=== PATIENT | female | born 1980 | race Two or more races ===

== ENCOUNTER 2017-09-30 17:20 | Emergency (ER) | payer OTHER ==
[2017-09-30 17:25] VITALS: BP 128/88; PULSE 87; TEMP 97.4; BMI 26.4
--- NOTE | 2017-09-30 17:37 | PDOC ---
History of Present Illness <Nancy Ramirez - Last Filed: 09/30/17 18:55> - General History Source: Patient Exam Limitations: No Limitations - History of Present Illness Initial Comments: 09/30/17 19:03 The patient is a 37 year old female with no significant past medical history who presents to the ED with complaints of throat discomfort for a month. The patient reports a sudden onset of throat itching and a pressure like sensation in her throat. She states her symptoms progressively worsened this past week and she feels like her throat is closing. Patient reports taking benadryl with slight relief of symptoms. She states her throat discomfort was at its worse today and she went to the pharmacy and was given robitussin with no relief of symptoms. Denies fever or chills. Denies nausea, vomiting, or diarrhea. Denies chest pain or shortness of breath. Denies rash. Denies any other symptoms. <Donta Morales - Last Filed: 09/30/17 19:04> - General Chief Complaint: Sore Throat Stated Complaint: ITCHY THROAT Time Seen by Provider: 09/30/17 17:37 Past History - Past Medical History COPD: No Other medical history: DENIES - Suicide/Smoking/Psychosocial Hx Smoking History: Never smoked Have you smoked in the past 12 months: No Information on smoking cessation initiated: No Hx Alcohol Use: No Drug/Substance Use Hx: No <Nancy Ramirez - Last Filed: 09/30/17 18:55> <Donta Morales - Last Filed: 09/30/17 19:04> - Past Medical History Allergies/Adverse Reactions: Allergies Allergy/AdvReac Type Severity Reaction Status Date / Time No Known Allergies Allergy Verified 09/30/17 17:22 Home Medications: Ambulatory Orders Diphenhydramine HCl [Benadryl -] 25 mg PO ONCE 09/30/17 Prednisone [Prednisone 50 MG TABLETS] 50 mg PO DAILY #4 tablet 09/30/17 Review of Systems - Review of Systems Able to Perform ROS?: Yes Comments:: 09/30/17 19:03 GENERAL/CONSTITUTIONAL: No fever or chills. No weakness. HEAD, EYES, EARS, NOSE AND THROAT: + Throat discomfort. No change in vision. No ear pain or discharge. GASTROINTESTINAL: No nausea, vomiting, diarrhea or constipation. GENITOURINARY: No dysuria, frequency, or change in urination. CARDIOVASCULAR: No chest pain or shortness of breath. RESPIRATORY: No cough, wheezing, or hemoptysis. MUSCULOSKELETAL: No joint or muscle swelling or pain. No neck or back pain. SKIN: No rash NEUROLOGIC: No headache, vertigo, loss of consciousness, or change in strength/ sensation. ENDOCRINE: No increased thirst. No abnormal weight change. HEMATOLOGIC/LYMPHATIC: No anemia, easy bleeding, or history of blood clots. ALLERGIC/IMMUNOLOGIC: No hives or skin allergy. All Other Systems: Reviewed and Negative <Donta Morales - Last Filed: 09/30/17 19:04> *Physical Exam - Vital Signs Last Vital Signs Temp Pulse Resp BP Pulse Ox 97.4 F L 87 18 128/88 100 09/30/17 17:20 09/30/17 17:20 09/30/17 17:20 09/30/17 17:20 09/30/17 17:20 <Nancy Ramirez - Last Filed: 09/30/17 18:55> - Vital Signs Last Vital Signs Temp Pulse Resp BP Pulse Ox 97.4 F L 87 18 128/88 100 09/30/17 17:20 09/30/17 17:20 09/30/17 17:20 09/30/17 17:20 09/30/17 17:20 - Physical Exam Comments: 09/30/17 19:03 GENERAL: Awake, alert, and fully oriented, in no acute distress HEAD: No signs of trauma EYES: PERRLA, EOMI, sclera anicteric, conjunctiva clear ENT: Auricles normal inspection, hearing grossly normal, nares patent, oropharynx clear without exudates. Moist mucosa NECK: Normal ROM, supple, no lymphadenopathy, JVD, or masses LUNGS: Breath sounds equal, clear to auscultation bilaterally. No wheezes, and no crackles HEART: Regular rate and rhythm, normal S1 and S2, no murmurs, rubs or gallops ABDOMEN: Soft, nontender, normoactive bowel sounds. No guarding, no rebound. No masses EXTREMITIES: Normal range of motion, no edema. No clubbing or cyanosis. No cords, erythema, or tenderness BACK: No midline spinal tenderness in cervical/thoracic/lumbar region NEUROLOGICAL: Normal speech, cranial nerves intact, negative pronator drift, 5/ 5 strength in all 4 extremities, normal sensation to light touch in all 4 extremities, normal cerebellar exam, normal gait, normal reflexes and tone SKIN: Warm, Dry, normal turgor, no rashes or lesions noted. <Donta Morales - Last Filed: 09/30/17 19:04> ED Treatment Course - Medications Given in the ED: ED Medications Discontinued Medications Generic Name Dose Route Start Last Admin Trade Name Marques PRN Reason Stop Dose Admin Prednisone 50 mg 09/30/17 17:54 09/30/17 18:00 Deltasone - PO 09/30/17 17:55 50 mg ONCE ONE Administration <Donta Morales - Last Filed: 09/30/17 19:04> Medical Decision Making - Medical Decision Making 09/30/17 17:58 37-year-old female with no significant past medical history presents with 1 month of progressive itching and swelling in her throat. The patient reports the swelling sensation increased yesterday and she started to feel like her throat was closing up intermittently prompting her to come in today. She denies any shortness of breath. Vitals are within normal limits. Exam is unremarkable, patient appears comfortable and has no swelling in her oropharynx. It is unclear what the etiology of her symptoms are that the differential includes airway obstruction versus allergic reaction versus mass occupying lesion in her neck. I offered the patient a CT scan of her neck but she does not want to wait for the study to be done and read. She requests that we give her medication to help her symptoms and states that she cannot say for further evaluation as she does not have child watch attendant for her daughter. The patient is clinically sober, free from distracting injury, appears to have intact insight and judgment and reason and in my opinion has the capacity to make decisions. The patient presents with sensation of throat closing up. I have explained that I am concerned that this may represent airway obstruction versus ALLERGIC reaction versus mass occupying lesion; she has verbalized an understanding of my concerns. I have told the patient that while her vitals and exam were normal, she could still have airway obstruction. I have discussed the need for a CT scan and possible transfer for ENT consultation to get more information about potential causes of the patients symptoms. I have told the patient that if she leaves and have worsening sensation of throat closing up, she could get much worse, could become critically ill, and could possibly become disabled or . I have offered to give the patient steroids in addition to the medications she is currently taking. I have offered to transfer this patient rather than do a CT scan. The patient is not willing to undergo a CT scan. She is unwilling to stay overnight for monitoring. She is refusing any further care and is leaving against medical advice. I am unable to convince the patient to stay, I have asked them to return as soon as possible to complete their evaluation. I have answered all their questions. <Nancy Ramirez - Last Filed: 09/30/17 18:55> *DC/Admit/Observation/Transfer - Discharge Dispostion Admit: No <Nancy Ramirez - Last Filed: 09/30/17 18:55> - Attestations Scribe Attestion: 09/30/17 19:04 Documentation prepared by Donta Morales, acting as medical reception specialist for Nancy Ramirez MD <Donta Morales - Last Filed: 09/30/17 19:04> Diagnosis at time of Disposition: Throat discomfort - Discharge Dispostion Disposition: AGAINST MEDICAL ADVICE Condition at time of disposition: Stable - Prescriptions Prescriptions: Prednisone [Prednisone 50 MG TABLETS] 50 mg PO DAILY #4 tablet - Patient Instructions Additional Instructions: You presented to the emergency department today with a sensation that your throat was closing up. You are leaving against medical advice. Please return to the emergency department for further evaluation as soon as possible. By leaving against medical advice, you are putting yourself at risk of your throat closing up and possibly blocking your airway. By doing so, you are at risk of increased swelling, disability, or . Follow up at your ENT appointment as scheduled and see your primary doctor within 2-3 days. Take the prednisone as prescribed.
[2017-09-30] MEDS ORDERED: predniSONE 20 MG TABLET (UD) PO ONE (17:54)
[2017-09-30] MEDS ORDERED: predniSONE 20 MG TABLET (UD) ONE (18:02)
[2017-09-30] MEDS ORDERED: predniSONE 10 MG TABLET (UD) ONE (18:02)
== END 2017-09-30 19:05 | disposition left against medical advice (07) ==
LOC: FER 17:20
DX: R04.0 Epistaxis (principal)
CPT/HCPCS: 99283-25